=== PATIENT | female | born 1980 | race Hispanic/Latino ===

== ENCOUNTER 2017-02-13 23:17 | Inpatient (IN) | payer MEDICAID ==
[2017-02-13 23:36] VITALS: O2SAT 97
--- NOTE | 2017-02-13 23:45 | C.PDOC ---
History Of Present Illness 36 yo femlale, hx of substance abuse, transfered from [facility] for depression. pt also reports previous history of elbow injury, already in splint s/p injury 1 weeks ago. no fevers, cp, sob, or other complaints. pt medically cleared and accepted prior to transfer Time Seen by Provider: 02/13/17 23:21 Chief Complaint (Nursing): Psychiatric Evaluation Past Medical History Reviewed: Historical Data, Nursing Documentation, Vital Signs Vital Signs: Last Vital Signs Temp 98.2 F 02/13/17 23:25 Pulse 74 02/13/17 23:25 Resp 20 02/13/17 23:25 BP 122/86 02/13/17 23:25 Pulse Ox 97 02/13/17 23:47 - Medical History PMH: Bipolar Disorder Family History: States: Unknown Family Hx - Social History Hx Alcohol Use: Yes Hx Substance Use: No - Immunization History Hx Tetanus Toxoid Vaccination: Yes Hx Influenza Vaccination: No Hx Pneumococcal Vaccination: No Review Of Systems Except As Marked, All Systems Reviewed And Found Negative. Musculoskeletal: Positive for: Arm Pain Psych: Positive for: Depression Physical Exam - Physical Exam Appears: Well, No Acute Distress Skin: Normal Color, Warm, Dry Eye(s): bilateral: Normal Inspection, PERRL, EOMI Nose: Normal Throat: Normal Neck: Normal Cardiovascular: Rhythm Regular Respiratory: Normal Breath Sounds Gastrointestinal/Abdominal: Normal Exam Back: Normal Inspection Extremity: Normal ROM, Other ((+)left arm splint) ED Course And Treatment O2 Sat by Pulse Oximetry: 97 Medical Decision Making Medical Decision Making: medically cleared and accepted prior to arrival. Disposition - Disposition Disposition: HOSPITALIZED Disposition Time: 23:47 Condition: STABLE - Clinical Impression Clinical Impression: Depression, Alcohol use disorder Decision To Admit - Pt Status Changed To: Hospital Disposition Of: Inpatient - Admit Certification Admit to Inpatient:: After my assessment, the patient will require hospitalization for at least two midnights. This is because of the severity of symptoms shown, intensity of services needed, and/or the medical risk in this patient being treated as an outpatient. - InPatient: Physician Admission Certification: I certify that this patient requires 2 or more midnights of care for the following reason:: needs inpt pysch - . Bed Request Type: Detox Admitting Physician: Sun Owusu Patient Diagnosis: Depression, Alcohol use disorder
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
[2017-02-14] MEDS: Divalproex 500 mg DR Tab PO SCH ×2 (11:04→17:08)
[2017-02-14] MEDS: Multiple Vitamins Tab PO SCH (11:04)
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
[2017-02-15] MEDS: Multiple Vitamins Tab PO SCH (09:55)
[2017-02-15] MEDS: Divalproex 500 mg DR Tab PO SCH ×2 (09:55→17:15)
--- NOTE | 2017-02-15 16:02 | PCM.PYCHPN ---
Psychiatric Progress Note - Psychiatric Progress Note Patient seen today, length of contact: 17 min Patient Chief Complaint: 'I am very anxious' Problems Identified/Issues Discussed: Patient is seen, evaluated, and case discussed with staff. Patient states that she is very anxious today. She complains of poor sleep, and sweats. Patient denies any other symptoms. She denies any hallucinations, or paranoia. Patient is constantly requesting various medications from the staff. She is compliant with all her medications, and denies any side effects. Symptoms are improving, but needs more time to stabilize. Support and psychoeducation given. Medication Change: Yes Medical Record Reviewed: Yes Mental Status Examination - Cognitive Function Orientation: Person, Place, Situation, Time Memory: Intact Attention: Poor Concentration: Poor Association: Loose Fund of Knowledge: Poor - Mood Mood: Depressed, Anxious - Affect Affect: Constricted, Blunted, Depressed - Speech Speech: Soft - Formal Thought Process Formal Thought Process: No Impairment - Suicidal Ideation Suicidal Ideation: No - Homicidal Ideation Homicidal Ideation: No Goal/Treatment Plan - Goal/Treatment Plan Need for Continued Stay: Remain at risks for inpatient hospitalization, Discharge may exacerbated symptoms Progress Toward Problem(s) and Goals/Treatment Plan: Lexapro for depression Gabapentin for anx/alcohol depakote for bipolar Librium detox As needed meds and vitamins Attend groups and activities [place] for abstinence and CBT for relapse prevention Support and psychoeducation Consider and encourage MAT Refer to after care
[2017-02-16 07:46] VITALS: RESP 18
[2017-02-16] MEDS: Multiple Vitamins Tab PO SCH (09:55)
[2017-02-16] MEDS: Divalproex 500 mg DR Tab PO SCH ×2 (09:56→18:08)
--- NOTE | 2017-02-16 14:12 | PCM.PYCHPN ---
Psychiatric Progress Note - Psychiatric Progress Note Patient seen today, length of contact: 17 min Patient Chief Complaint: 'I am doing better' Problems Identified/Issues Discussed: Patient is seen, evaluated, and case discussed with staff. Patient states that she is doing well today. She states that her tremors have improved. She still complains of some anxiety but states that it is much better than yesterday. She denies any hallucinations, or paranoia. Patient denies any suicidal ideations. She is compliant with all her medications, and denies any side effects. Symptoms are improving, but needs more time to stabilize. Still very med-seeking and has odd plans: wants to go to another inpatient clinic from here but advertising copy writer advised she go to rehab. She reluctantly agreed. It is not clear of she is indeed interested in improving properly, rather than getting certain meds, mainly benzos, to deal with her anxiety. Support and psychoeducation given. OK used Addendum / late entry: Later on the evening she claimed she hurt her elbow again (unclear how) and asked for "very strong pain medications" and refused ultram. XR ordered as well as ortho consult. Medication Change: Yes (inderal for anxiety, ultram for pain) Medical Record Reviewed: Yes Mental Status Examination - Cognitive Function Orientation: Person, Place, Situation, Time Memory: Intact Attention: Poor Concentration: Poor Association: Loose Fund of Knowledge: Poor - Mood Mood: Depressed, Anxious - Affect Affect: Constricted, Blunted, Depressed - Speech Speech: Soft - Formal Thought Process Formal Thought Process: No Impairment - Suicidal Ideation Suicidal Ideation: No - Homicidal Ideation Homicidal Ideation: No Goal/Treatment Plan - Goal/Treatment Plan Need for Continued Stay: Remain at risks for inpatient hospitalization, Discharge may exacerbated symptoms Progress Toward Problem(s) and Goals/Treatment Plan: Lexapro for depression Gabapentin for anx/alcohol depakote for bipolar Librium detox As needed meds and vitamins Attend groups and activities [place] for abstinence and CBT for relapse prevention Support and psychoeducation Consider and encourage MAT Refer to after care - pt states that she will go to rehab for 3 months Estimated Date of D/C: 02/19/17
[2017-02-16] MEDS: Tramadol 25 mg PO PRN (16:41)
[2017-02-17 08:40] LABS: ALB/GLOB RATIO 1.3 (1.0-2.1); ALBUMIN 3.9 g/dL (3.5-5.0); ALT/SGPT 38 U/L (9-52); AST/SGOT 31 U/L (14-36); BLOOD UREA NITROGEN 21 mg/dL (7-17); CALCIUM 9.1 mg/dl (8.6-10.4); GFR AFRICAN-AMERICAN > 60; GFR NON-AFRICAN AMERICAN > 60
--- NOTE | 2017-02-17 09:20 | RAD ---
PROCEDURE: Radiographs of the left elbow. . Four views of the left elbow performed through a fiberglass mago splint which partially obscures fine soft tissue and bone detail. HISTORY: Patient states "I think I dislocated my left elbow" COMPARISON: No prior. FINDINGS: BONES: No definitive evidence acute displaced fracture nor dislocation. The osseous structures intact. JOINTS: No significant osteoarthritis. SOFT TISSUES: Normal. JOINT EFFUSION: No obvious posterior however note that the aforementioned fiberglass mago splint partially obscures posterior soft tissues at the level of the olecranon and joint space OTHER FINDINGS: None IMPRESSION: No obvious acute displaced fracture nor dislocation. Consider repeat radiographs following removal of fiberglass mago splint further evaluation.
[2017-02-17] MEDS: Divalproex 500 mg DR Tab PO SCH (10:33)
[2017-02-17] MEDS: Multiple Vitamins Tab PO SCH (10:33)
[2017-02-17] MEDS: Tramadol 25 mg PO PRN (11:02)
[2017-02-17 14:34] VITALS: BP 104/70; PULSE 66; TEMP 98
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
== END 2017-02-17 14:25 | disposition home or self-care (01) | DRG 430 ==
LOC: C.ER 23:17 → C.5E 23:42
PROVIDERS: ADMIT Psychiatry & Neurology Psychiatry; ATTEND Psychiatry & Neurology Psychiatry
PROC: GZ3ZZZZ Medication Management (ICD-10-PCS; principal; 2017-02-13)
PROC: GZHZZZZ Group Psychotherapy (ICD-10-PCS; 2017-02-13)
PROC: GZ56ZZZ Individual Psychotherapy, Supportive (ICD-10-PCS; 2017-02-13)
PROC: HZ2ZZZZ Detoxification Services for Substance Abuse Treatment (ICD-10-PCS; 2017-02-13)
PROC: HZ59ZZZ Individual Psychotherapy for Substance Abuse Treatment, Supportive (ICD-10-PCS; 2017-02-13)
DX: F31.9 Bipolar disorder, unspecified (principal); R45.851 Suicidal ideations; F10.239 Alcohol dependence with withdrawal, unspecified; F43.10 Post-traumatic stress disorder, unspecified; J45.909 Unspecified asthma, uncomplicated; F17.210 Nicotine dependence, cigarettes, uncomplicated; S59.902D Unspecified injury of left elbow, subsequent encounter; X58.XXXD Exposure to other specified factors, subsequent encounter

== ENCOUNTER 2017-02-17 14:31 | Emergency (ER) | payer MEDICAID ==
[2017-02-17 14:39] VITALS: BP 110/80; PULSE 78; TEMP 98.1
[2017-02-17] MEDS ORDERED: Oxycodone/Acetaminophen 5/325 mg Tab PO STA ×2 (15:08→15:19)
[2017-02-17] MEDS ORDERED: Oxycodone/Acetaminophen 5/325 mg Tab ONE ×2 (15:11→15:15)
--- NOTE | 2017-02-17 15:21 | C.PDOC ---
History Of Present Illness 36 y/o female presents to ED with complaints of left arm pain. Pt sustained left elbow dislocation 1 week ago, seen at [facility] had splint placed. Pt was then seen here for detox admission and discharged yesterday. Pt complains that the splint is too loose and isn't able to follow up with orthopedics until a few days from now. XR of elbow done here yesterday, normal, no fracture. Denies weakness, numbness or any other complaints. Time Seen by Provider: 02/17/17 14:47 Chief Complaint (Nursing): Upper Extremity Problem/Injury History Per: Patient History/Exam Limitations: no limitations Onset/Duration Of Symptoms: Days Current Symptoms Are (Timing): Still Present Quality: "Pain" Severity: Moderate Recent travel outside of the [place]: No Past Medical History Reviewed: Historical Data, Nursing Documentation, Vital Signs Vital Signs: Last Vital Signs Temp 98.1 F 02/17/17 14:36 Pulse 78 02/17/17 14:36 Resp 16 02/17/17 14:36 BP 110/80 02/17/17 14:36 Pulse Ox 98 02/17/17 15:21 - Medical History PMH: Anxiety, Bipolar Disorder, Depression Family History: States: Unknown Family Hx - Social History Hx Alcohol Use: Yes Hx Substance Use: Yes - Immunization History Hx Tetanus Toxoid Vaccination: Yes Hx Influenza Vaccination: No Hx Pneumococcal Vaccination: No Review Of Systems Musculoskeletal: Positive for: Other (right elbow pain) Neurological: Negative for: Weakness, Numbness Physical Exam - Physical Exam Appears: Non-toxic, No Acute Distress Skin: Warm, Dry, No Rash Head: Atraumatic, Normacephalic Extremity: Normal ROM, Tenderness (diffuse left elbow), Capillary Refill (<2 seconds), No Deformity, No Swelling Pulses: Left Radial: Normal Neurological/Psych: Oriented x3, Normal Speech, Normal Motor, Normal Sensation ED Course And Treatment O2 Sat by Pulse Oximetry: 98 (room air) Pulse Ox Interpretation: Normal Progress Note: Removed loose splint. Pulses intact. Gave percocet and new splint applied by CP, checked by me. Discharged patient home with instruction to follow up with ortho in 2-3 days. Disposition - Disposition Disposition: HOME/ ROUTINE Disposition Time: 15:20 Condition: STABLE Additional Instructions: Follow up with your Orthopedist within 1-2 days. Return to ED if feel worse. Instructions: Splint Care (ED) - Clinical Impression Clinical Impression: Elbow pain - PA / NOTE TELLER / Resident Statement MD/DO has reviewed & agrees with the documentation as recorded. - Scribe Statement The provider has reviewed the documentation as recorded by the Scribe Marek Villalobos All medical record entries made by the Scribe were at my direction and personally dictated by me. I have reviewed the chart and agree that the record accurately reflects my personal performance of the history, physical exam, medical decision making, and the department course for this patient. I have also personally directed, reviewed, and agree with the discharge instructions and disposition.
[2017-02-17 15:34] VITALS: RESP 18
[2017-02-17 15:35] VITALS: O2SAT 98
== END 2017-02-17 15:34 | disposition home or self-care (01) ==
LOC: C.ER 14:31
DX: M25.522 Pain in left elbow (principal)

== ENCOUNTER → 2017-02-17 20:09 | Emergency (ER) | payer MEDICAID | END | disposition left against medical advice (07) | LOC: C.ER 20:09 | DX: F32.9 Major depressive disorder, single episode, unspecified (principal); Z02.9 Encounter for administrative examinations, unspecified ==